=== PATIENT | female | born 1970 | race Caucasian/White ===

== ENCOUNTER 2017-05-09 20:07 | Emergency (ER) | payer BC ==
[~2017-05-09] VITALS: Ht 165.1 cm; Wt 78.5 kg
[2017-05-09 20:18] VITALS: BP_SYST 112
[2017-05-09] MEDS ORDERED: HYDROcodone/ACETAMIN 7.5-325 MG TAB PO ONE (20:30)
[2017-05-09 21:01] VITALS: BP_SYST 112
== END 2017-05-09 21:01 | disposition home or self-care (01) ==
LOC: SED 20:07
DX: S93.492A Sprain of other ligament of left ankle, initial encounter (principal); X58.XXXA Exposure to other specified factors, initial encounter; Y93.89 Activity, other specified; Y92.096 Garden or yard of other non-institutional residence as the place of occurrence of the external cause; Y99.8 Other external cause status
CPT/HCPCS: 99284